=== PATIENT | female | born 1970 | race Caucasian/White ===

== ENCOUNTER → 2025-04-07 | Outpatient (CLI) | payer MEDICAID, SELFPAY ==
--- NOTE | 2025-04-07 | XR_ITS ---
Examination: Lumbar spine 3 views Technique one AP lateral coned lateral lower lumbar spine 3 views Date and time: April 07, 2025 12:23 PM INDICATIONS: Patient fell 2018 with injury of the lower back, lower back pain. FINDINGS: Moderate osteopenia Lumbar levoscoliosis 12 degrees Grade 1 anterolisthesis L4 on L5 No acute lumbar fracture Diffuse [id number] lumbar degenerative disc disease, most prominent L4-L5, L5-S1 Moderate lumbar spondylosis IMPRESSION: Diffuse [id number] lumbar degenerative disc disease, most prominent L4-L5, L5-S1
--- NOTE | 2025-04-07 | XR_ITS ---
Examination: Cervical spine 4 views Technique one AP lateral swimmer's lateral coned AP odontoid cervical spine 4 views Date and time: April 07, 2025 1218 hours INDICATIONS: Patient fell 2018 with injury of the neck, persistent neck pain. FINDINGS: Straightening normal cervical lordosis. No cervical fracture. Moderate degenerative disc disease C4-C5 with posterior osteophyte formation IMPRESSION: Moderate degenerative disc disease C4-C5 with early posterior osteophyte formation
== END | disposition home or self-care (01) ==
PROVIDERS: PCP Family Medicine; Referring Provider Nurse Practitioner; Visit Provider Nurse Practitioner
DX: M50.321 Other cervical disc degeneration at C4-C5 level (principal); M25.78 Osteophyte, vertebrae; M51.370 Other intervertebral disc degeneration, lumbosacral region with discogenic back pain only; M51.360 Other intervertebral disc degeneration, lumbar region with discogenic back pain only
CPT/HCPCS: 72040; 72100